=== PATIENT | female | born 1975 | race Caucasian/White ===

== ENCOUNTER → 2016-06-16 | Outpatient (CLI) | payer BC ==
[~2016-06-16] MED LIST: NO MEDICATIONS
--- NOTE | ~2016-06-16 | MY6 ---
[facility] A Service of [facility] RADIOLOGY TEXT RESULTS PATIENT: MARU COON LOCATION: [facility] : [birth year] UNIT #: [id number] AGE: [address]: ARIELLA MASON MD SEX: F ORDER DR: [id number] [facility] [address] [place], [place] [address] [id number] O MR#: [id number] Acc #: [id number] NAME: MARU COON : 1975 SEX: F STUDY DATE/TIME: 06/16/2016 8:19 UNIT: [facility] ROOM: STUDY DESCRIPTION: MY Mammogram Dx Dig Sal Attending Physician: Akbar Mason M.D. Referring Physician: Akbar Mason M.D. Ordering Physician: Akbar Mason M.D. Primary Care Physician: Akbar Mason M.D. MEDICAL IMAGING REPORT This report is preliminary unless electronic signature is present EXAM Diagnostic mammogram, 06/16. INDICATION 40 year old with no personal history but a positive family history of breast cancer. She reports a palpable nodule in the left breast for about 2 weeks. FINDINGS Digital CC, MLO, and ML views of both breasts were obtained, in addition to spot compression left CC and MLO views. Study is reviewed with an FDA-approved CAD device. This is a baseline exam. Breast parenchyma is heterogeneously dense. No suspicious microcalcifications are seen in either breast. Benign calcifications are seen in the lateral left breast. There is a partially obscured nodule in the upper outer left breast corresponding to the palpable abnormality. It measures about 10 mm in size mammographically. Ultrasound was subsequently performed of the left breast. Ultrasound demonstrates an 11 mm subcutaneous cyst at the 2 o'clock position corresponding to the palpable abnormality. There is a second smaller cyst at 12 o'clock measuring about 7 mm in greatest dimension. No suspicious ultrasound findings. Findings were discussed with the patient at the time of her examination today. IMPRESSION Benign bilateral mammogram with a benign targeted left ultrasound. Palpable abnormality corresponds to a benign simple cyst. Routine yearly mammographic screening recommended. [facility] A Service of [facility] RADIOLOGY TEXT RESULTS PATIENT: MARU COON LOCATION: [facility] : 73 UNIT #: [id number] AGE: [address]: ARIELLA MASON MD SEX: F ORDER DR: Patients over the age of 40 are entered into a reminder system with target due date for the next mammogram. A result letter will also be sent to the patient. BIRADS: 2 Benign finding. Dictated by... Ayo Dodge Jr., M.D. THIS IS AN ELECTRONICALLY VERIFIED REPORT Ayo Dodge Jr., M.D. at 06/16/2016 5:04 PM AGUSTIN/cm TD: 06/16/2016 10:53 JOB #: [id number] MEDICAL IMAGING REPORT Page 1 of 1 COPY
--- NOTE | ~2016-06-16 | US24 ---
[facility] A Service of [facility] RADIOLOGY TEXT RESULTS PATIENT: MARU COON LOCATION: [facility] : [birth year] UNIT #: [id number] AGE: [address]: ARIELLA MASON MD SEX: F ORDER DR: [id number] [facility] [address] [place], [place] [address] [id number] O MR#: [id number] Acc #: [id number] NAME: MARU COON : 1975 SEX: F STUDY DATE/TIME: 06/16/2016 9:03 UNIT: [facility] ROOM: STUDY DESCRIPTION: US Breast Unilateral Attending Physician: Akbar Mason M.D. Referring Physician: Akbar Mason M.D. Ordering Physician: Akbar Mason M.D. Primary Care Physician: kAbar Mason M.D. MEDICAL IMAGING REPORT This report is preliminary unless electronic signature is present EXAM Left breast ultrasound, 06/16. INDICATION Palpable abnormality in the left breast for about 2 weeks. Abnormal mammogram today. FINDINGS For a full report, see the mammogram report dated 06/16/2016. Patients over the age of 40 are entered into a reminder system with target due date for the next mammogram. A result letter will also be sent to the patient. BIRADS: 2 Benign finding. Dictated by... Ayo Dodge Jr., M.D. THIS IS AN ELECTRONICALLY VERIFIED REPORT Ayo Dodge Jr., M.D. at 06/16/2016 5:04 PM AGUSTIN/cm TD: 06/16/2016 10:56 JOB #: [id number] MEDICAL IMAGING REPORT Page 1 of 1 COPY
== END | disposition home or self-care (01) ==
LOC: CMAM 07:55
DX: N63 Unspecified lump in breast (principal)
CPT/HCPCS: 76641; G0204

== ENCOUNTER → 2016-07-24 | Day surgery (SDC) | payer BC ==
--- NOTE | ~2016-07-24 | OR ---
Unit #: [id number] #: [id number] Patient: MARU JORGENSEN [id number] [address] [address] [id number] O MR#: [id number] NAME: MARU JORGENSEN ROOM: Date of Procedure: 07/24/2016 Admission Date: 07/24/2016 Surgeon: Ayo Castellanos M.D. : 1975 Attending Physician: Ayo Castellanos M.D. Primary Care Physician: Meena Sanchez M.D. OPERATIVE REPORT PREOPERATIVE DIAGNOSIS Enlarging subcutaneous nodule, left buttock and right upper extremity. POSTOPERATIVE DIAGNOSES 2.5 cm left buttock sebaceous cyst and 3.2 cm right upper extremity lipoma. PROCEDURES PERFORMED Excisional biopsy of 2.5 cm left buttock sebaceous cyst and excisional biopsy of 3.2 cm right upper extremity lipoma. ANESTHESIA General endotracheal anesthesia. ESTIMATED BLOOD LOSS Less than 20 mL. INDICATIONS FOR PROCEDURE Ms. Jorgensen is a 40-year-old female, who presented in the office with enlarging and palpable subcutaneous nodules, one on the left buttock and one over the biceps muscle in the right upper extremity. She said both were tender and enlarging. We discussed doing these under local anesthetic in the office, but she was far too anxious to do that, so we scheduled her for outpatient surgery. DESCRIPTION OF PROCEDURE The patient was admitted to [facility], positively identified, and transported to the operating room, and after induction of general endotracheal anesthesia, she was placed in a lateral position with the left buttock up and the right arm extended on an operating arm board. Both sites were prepped and draped in usual sterile fashion. Local anesthetic was infiltrated to the skin and soft tissue. An incision was made over the buttock mass and dissected out a 2.5 cm sebaceous cyst from the subcutaneous tissue. The area was irrigated. We obtained hemostasis. The deep tissues were closed with 2-0 Vicryl interrupted sutures and the skin was reapproximated with 3-0 nylon vertical mattress sutures. Telfa and Tegaderm were placed as a dressing. I then went to the right upper extremity. An incision was made over the palpable mass. I dissected down and completely dissected out a 3.2 cm lipomatous mass. Again, I irrigated and obtained hemostasis. The skin was closed with 3-0 nylon simple interrupted sutures. Telfa and Tegaderm placed dressing. Sponges and needle counts were correct x3. The patient tolerated the procedure well and transported to recovery in stable condition. No family was available Unit #: [id number] #: [id number] Patient: MARU JORGENSEN at the end of the case to discuss the findings and instructions with, so I discussed with the patient after she had recovered from her anesthetic. Dictated by... Bessy Boone/alex TD: 07/25/2016 00:55 JOB #: [id number] OPERATIVE REPORT Page 1 of 1 X Ayo Castellanos MD PROCEDURE OPERATIVE NOTE
== END | disposition home or self-care (01) ==
LOC: CSUR 06:52
DX: L72.0 Epidermal cyst (principal); R22.31 Localized swelling, mass and lump, right upper limb; F17.210 Nicotine dependence, cigarettes, uncomplicated; Z98.890 Other specified postprocedural states
CPT/HCPCS: 84703; 88304; J0690; J2250; J2405; J3010